=== PATIENT | male | born 1970 | race Two or more races ===

== ENCOUNTER 2018-04-11 21:12 | Emergency (ER) | payer BC ==
[~2018-04-11] VITALS: Ht 182.9 cm; Wt 92.5 kg
[~2018-04-11 21:12] MED LIST: FLOMAX0.4 MG PO; MOTRIN400 MG PO; VICODIN 5-5001 EACH PO; [UNRECOGNIZED DRUG - OTHER]
--- NOTE | 2018-04-11 21:16 | NUR ---
ED Nurse Note: Patient presents with recurrent abdominal pain 10/.
[2018-04-11] MEDS ORDERED: NKM (21:18)
--- NOTE | 2018-04-11 21:25 | NUR ---
ED Nurse Note: Patient resting calmly with no s/s of acute distress, at bedside.
[2018-04-11 21:39] VITALS: BP 125/85
--- NOTE | 2018-04-11 21:39 | Emergency Room Report ---
History of Present Illness General Chief Complaint: Abdominal Pain Source: Patient Present Illness HPI Is a 47-year-old male with a history of kidney stone. He presents with chief complaint of abdominal pain. Pain is 8 out of 10. Onset tonight. Pain is sharp and periumbilical. He had a fever 2 days ago. That got better. Was eating normally. No nausea no vomiting. No longer having any fever. No relief with Vicodin. No dysuria frequency. No hematuria. Nothing made it better. Nothing made it worse. Allergies: Coded Allergies: CIPROFLOXACIN (Verified Allergy, Hives, 12/10/11) CIPROFLOXACIN HCL (Verified Allergy, Hives, 12/10/11) Patient History Past Medical History: see triage record, old chart reviewed Past Surgical History: none Pertinent Family History: none Social History: Denies: smoking Immunizations: other Reviewed Nursing Documentation: PMH: Agreed; PSxH: Agreed Nursing Documentation-PMH Past Medical History: No Stated History Review of Systems Eye: Denies: eye pain, blurred vision ENT: Denies: ear pain, nose congestion, throat swelling Respiratory: Denies: cough, shortness of breath Cardiovascular: Denies: chest pain, palpitations Gastrointestinal: Reports: abdominal pain; Denies: diarrhea, nausea, vomiting Musculoskeletal: Denies: back pain, joint pain Skin: Denies: rash Neurological: Denies: headache, numbness Endocrine: Denies: increased thirst, increased urine Hematologic/Lymphatic: Denies: easy bruising All Other Systems: negative except mentioned in HPI Physical Exam Vital Signs Date Time Temp Pulse Resp B/P (MAP) Pulse Ox O2 Delivery O2 Flow Rate FiO2 04/11/18 21:14 98.2 65 18 125/85 95 Room Air vitals normal Sp02 EP Interpretation: reviewed, normal General Appearance: well appearing, no apparent distress, alert Head: normocephalic, atraumatic Eyes: bilateral eye PERRL, bilateral eye EOMI ENT: hearing grossly normal, normal pharynx Neck: full range of motion, supple, no meningismus Respiratory: chest non-tender, lungs clear, normal breath sounds Cardiovascular #1: regular rate, rhythm, no murmur Gastrointestinal: normal bowel sounds, no mass, no organomegaly, no bruit, non- distended, tenderness - Periumbilical, mild Musculoskeletal: back normal, gait/station normal, normal range of motion Neurologic: alert, oriented x3 Psychiatric: mood/affect normal Skin: warm/dry Medical Decision Making Diagnostic Impression: Primary Impression: Ureteral stone with hydronephrosis Additional Impression: UTI (urinary tract infection) Qualified Codes: N30.00 - Acute cystitis without hematuria ER Course This patient presents with infected ureteral stone. Concerning is the fact that he had a fever couple days ago. He has 2 large obstructed mid right ureteral stone with severe right hydronephrosis. He has nonspecific bilateral perinephric stranding. He was here 2011 and had ureteral stone then. He said he passed it. He saw a urologist then. He had no problem until now. Patient does not want to be admitted. He said that he has an appointment with his primary care doctor tomorrow. He will try to get to see the urologist. His call left messages. I try to convince the patient to be admitted for IV antibiotics and urology consult for possible surgery. I gave him a dose of Rocephin here. Patient is competent to make decision to leave against medical advice. I will prescribe antibiotics, pain medication and give him copies of his CT report and labs. Lab Results Impression labs unremarkable CT/MRI/US Diagnostic Results CT/MRI/US Diagnostic Results : Imaging Test Ordered: CT abdomen and pelvis Impression Read by radiologist. 10 mm an 8 mm obstructed stones seen in the mid right ureter. There is severe right hydronephrosis with cortical thinning. Correlate for underlying infection. Perinephric stranding. Mild urinary bladder wall thickening. Last Vital Signs Date Time Temp Pulse Resp B/P (MAP) Pulse Ox O2 Delivery O2 Flow Rate FiO2 04/11/18 21:14 98.2 65 18 125/85 95 Room Air Status: improved Disposition: AGAINST MEDICAL ADVICE Condition: Stable Scripts Oxycodone/Acetaminophen 5-325* (PERCOCET 5-325 MG TABLET*) 1 Each Tablet 1 TAB ORAL Q6H PRN for For Pain, #20 TAB Prov: Gibson Dutton MD 04/12/18 Ibuprofen* (MOTRIN*) 600 Mg Tablet 600 MG ORAL THREE TIMES A DAY, #30 TAB 0 Refills Prov: Gibson Dutton MD 04/12/18 Cephalexin* (KEFLEX*) 500 Mg Capsule 500 MG ORAL TID, #21 CAP Prov: Gibson Dutton MD 04/12/18 Additional Instructions: You have an infected kidney stone. This is high risk for deterioration and sepsis. Your sign out AGAINST MEDICAL ADVICE. Return if you change your mind. Follow-up with your doctor tomorrow. He will need to see a urologist RICHARD. You may need a stent to remove the kidney stones. Return if worse. Gibson Dutton MD Apr 11, 2018 21:39
[2018-04-11] MEDS ORDERED: HYDROmorphone 1mg/ml Carpuject IVP ONE (21:45)
[2018-04-11 22:09] VITALS: BP 121/84
[2018-04-11 22:20] LABS: BASOPHILS % (AUTO) 0.8 % (0.0-2.0); EOSINOPHILS % (AUTO) 0.1 % (0.0-3.0); HEMATOCRIT 48.4 % (42.0-52.0); HEMOGLOBIN 16.7 G/DL (14.2-18.0); LYMPHOCYTES % (AUTO) 20.6 % (20.0-45.0); MEAN CORPUSCULAR VOLUME 86 FL (80-99); MONOCYTES % (AUTO) 6.9 % (1.0-10.0); NEUTROPHILS % (AUTO) 71.6 % (45.0-75.0); PLATELET COUNT 185 K/UL (150-450); RED BLOOD COUNT 5.64 M/UL (4.70-6.10); RED CELL DISTRIBUTION WIDTH 11.4 % (11.6-14.8); WHITE BLOOD COUNT 7.3 K/UL (4.8-10.8)
[2018-04-11 22:29] LABS: ALANINE AMINOTRANSFERASE 71 U/L (12-78); ALBUMIN 3.6 G/DL (3.4-5.0); ALBUMIN/GLOBULIN RATIO 0.8 (1.0-2.7); ALKALINE PHOSPHATASE 91 U/L (46-116); ANION GAP 12 mmol/L (5-15); ASPARTATE AMINO TRANSFERASE 73 U/L (15-37); BILIRUBIN,TOTAL 0.7 MG/DL (0.2-1.0); BLOOD UREA NITROGEN 12 mg/dL (7-18); CALCIUM 8.5 MG/DL (8.5-10.1); CARBON DIOXIDE 26 MMOL/L (21-32); CHLORIDE 99 MMOL/L (98-107); CREATININE 1.2 MG/DL (0.55-1.30); POTASSIUM 4.7 MMOL/L (3.5-5.1); SODIUM 137 MMOL/L (136-145)
--- NOTE | 2018-04-11 22:35 | NUR ---
ED Nurse Note: Patient went with radiology for imaging.
[2018-04-11 22:59] LABS: APPEARANCE,URINE CLEAR; BILIRUBIN, URINE NEGATIVE (NEGATIVE); COLOR,URINE PALE YELLOW; GLUCOSE, URINE (UA) NEGATIVE (NEGATIVE); KETONES,URINE 3+ (NEGATIVE); LEUKOCYTE ESTERASE ,URINE 2+ (NEGATIVE); NITRITE,URINE NEGATIVE (NEGATIVE); PH,URINE 6.5 (4.5-8.0); PROTEIN,URINE 2+ (NEGATIVE); UROBILINOGEN,URINE NORMAL MG/DL (0.0-1.0)
--- NOTE | 2018-04-11 23:03 | NUR ---
ED Nurse Note: Patient has no s/s of acute pain, hydration running at bedside.
[2018-04-11 23:36] VITALS: BP 126/83
--- NOTE | 2018-04-11 23:37 | NUR ---
ED Nurse Note: Patient resting with complaints of return pain 6/10 of the abdomen. Fluids are coming to an end. ERMD will be informed of current pain level.
[2018-04-12] MEDS ORDERED: cefTRIAXone 1 GM in NS 55 ML IVPB ONE ×2
[2018-04-12] MEDS ORDERED: HYDROmorphone 1mg/ml Carpuject IVP ONE
[2018-04-12] MEDS ORDERED: CEPHALEXIN500 MG ORAL (00:26)
[2018-04-12] MEDS ORDERED: IBUPROFEN600 MG ORAL (00:26)
[2018-04-12] MEDS ORDERED: PERCOCET 5-3251 EACH ORAL (00:26)
--- NOTE | 2018-04-12 00:52 | NUR ---
AMA: SEE AMA FORM. Patient discharged against medical advise. Patient informed of risk by ermd, Patient verbalized understanding of diagnosis and recommendation and still insisted on departing. patient informed of circumstances that would warrant a return visit to the ER. Patient and both verbalized understanding. AMA form signed, IV removed, ID band removed. patient ambulatory with steady gait, no s/s of acute distress. Patient discharged in stable condition.
[2018-04-12 00:53] VITALS: BP 133/89
--- NOTE | 2018-04-12 09:29 | Diagnostic Imaging Report ---
Indication: Abdominal pain, recent history of kidney stones, history of fever Technique: Spiral acquisitions obtained through the abdomen and pelvis. No oral or IV contrast utilized, per urinary stone protocol. Multiplanar reconstructions were generated. Total dose length product 955.57 mGycm. CTDIvol(s) 17.05 mGy. Dose reduction achieved using automated exposure control Comparison: 12/10/2011 Findings: Again demonstrated are 3 adjacent calculi in the proximal right ureter, size and configuration identical to the previous study, largest measuring 8 mm in diameter. There is massive right hydronephrosis, much more severe than on the previous, with progressive thinning of the right renal cortex since previous exam. No intrarenal calculi are demonstrated. No ureteral calculi distal to these calculi are evident. There is only minimal perinephric fat stranding demonstrated. No left hydronephrosis, left renal or ureteral calculi are evident. Lack of IV contrast limits assessment of the renal parenchyma. No gross renal parenchymal mass or cyst demonstrated. The bladder is unremarkable. Lack of IV contrast limits assessment of the other solid organs. The liver, gallbladder, bile ducts, pancreas, spleen, adrenals are all unremarkable. No retroperitoneal or mesenteric mass or adenopathy. No pelvic mass or adenopathy. The appendix is not visualized, but no findings to suggest acute appendicitis are evident. No evidence of diverticulosis or diverticulitis. No small bowel distention. No free or loculated intraperitoneal gas or fluid is evident. The included lung bases demonstrate some atelectasis on the left. The bones are unremarkable. Impression: 3 proximal right ureteral calculi, also evident on prior exam of 12/10/2011 and essentially unchanged in size and configuration. Resultant severe right hydronephrosis with marked cortical thinning, progressive since the previous exam Minimal nonspecific right perinephric fat stranding No left renal or ureteral calculi Minimal left basilar atelectasis This agrees with the preliminary interpretation provided overnight by [facility] service. The CT scanner at [facility] is accredited by the [employer] and the scans are performed using protocols designed to limit radiation exposure to as low as reasonably achievable to attain images of sufficient resolution adequate for diagnostic evaluation.
== END 2018-04-12 00:52 | disposition left against medical advice (07) ==
LOC: EMR 21:40
DX: N13.2 Hydronephrosis with renal and ureteral calculous obstruction (principal); N39.0 Urinary tract infection, site not specified; Z88.1 Allergy status to other antibiotic agents
CPT/HCPCS: 36415; 74176; 80053; 81003; 83690; 85025; 87086; 96361; 96365; 96375; 99284; J0696; J1170; J2405